=== PATIENT | male | born 1990 | race Caucasian/White ===

== ENCOUNTER 2022-11-05 12:41 | Emergency (ER) | payer OTHER, SELFPAY ==
[2022-11-05 12:58] VITALS: BP 119/78; PULSE 92; RESP 20; TEMP 37.9; O2SAT 93; BMI 25.1
--- NOTE | 2022-11-05 13:43 | ED.ALLEREA ---
HPI - Allergic Reaction General Chief complaint: Allergic Reaction Stated complaint: feels hot, stomach ache, throat tickle Time Seen by Provider: 11/05/22 13:43 Source: patient Mode of arrival: Ambulatory Limitations: no limitations History of Present Illness HPI narrative: This is a 32-year-old male with history of peanut allergy. Patient states he was eating at a restaurant he started feeling really hot he got red kind of all over he did not notice any hives but his skin is red on his face torso and extremities almost immediately afterwards he felt a little nauseated and irritated in his stomach and felt a tickle in his throat. He states it did not feel like it was closing, he did not appreciate any wheezing or tightness in his chest. No chest pain. No vomiting. No diarrhea. Patient states his typical reaction to peanuts is sort of funny smell he gets tightening and swelling in his throat he does get abdominal irritation and nausea and will sometimes get rash like hives. Patient states he did not have any ingestion of peanuts that he is aware of but was eating at a restaurant that is new to him. Patient denies any other medical issues. No prior surgeries. He states he is never required an EpiPen. He denies any other allergies. No tobacco, occasional alcohol, no illicit. 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 Related Data Allergies Allergy/AdvReac Type Severity Reaction Status Date / Time peanut Allergy Anaphylaxis Verified 11/05/22 13:07 Review of Systems Review of Systems ROS Unobtainable: All systems reviewed & are unremarkable except as noted in HPI and below Patient History Social History Smoking Status: Never smoker Smoking Status: Never smoker alcohol intake frequency: 0-2 drinks per day Substance Use Type: does not use Exam Narrative Exam Narrative: GEN: well nourished, well appearing male, alert and oriented x 3, patient appears to be in mild distress. HEENT: Atraumatic, pupils are equal round reactive to light, extraocular movements are intact, nares are clear. Throat is clear without any exudates, erythema, tonsillar enlargement or uvular deviation, no swelling of the oropharynx. No stridor, no muffled voice or hoarseness. No difficulty with secretions. HEART: Regular rate and rhythm without murmur, clicks, rubs. LUNGS:Lungs clear to auscultation, no wheezes, rales, crackles, chest moves symmetrically ABD:bowel sounds normal, soft, non-tender, no guarding, rebound, rigidity, no masses noted, no hepatosplenomegaly MSCL: Non-tender, no muscle atrophy, muscles strength 5/5 upper and lower extremities, full range of motion, normal gait NEURO:CN 2-12 intact, sensation normal SKIN: Patient has generalized erythema of the skin of his head, torso and upper extremities, he has several small meals of the left forearm that appears consistent with a hive but no blistering or other skin changes noted. Initial Vital Signs Initial Vital Signs: Vital Signs Temperature 100.2 F H 11/05/22 12:58 Pulse Rate 92 H 11/05/22 12:58 Respiratory Rate 20 11/05/22 12:58 Blood Pressure 119/78 11/05/22 12:58 Pulse Oximetry 93 11/05/22 12:58 Oxygen Delivery Method Room Air 11/05/22 12:58 Course Orders Ordered: Discontinued Medications Prednisone (Prednisone 20 Mg Tablet) 40 mg PO NOW ONE Stop: 11/05/22 13:54 Last Admin: 11/05/22 14:01 Dose: 40 mg Documented By: CTS Vital Signs Vital signs: Vital Signs - 8 hr 11/05/22 12:58 Temperature 100.2 F H Pulse Rate 92 H Respiratory Rate 20 Blood Pressure 119/78 Pulse Oximetry 93 Oxygen Delivery Method Room Air MDM - Allergic Reaction MDM Narrative Medical decision making narrative: This is a 32-year-old male with what sounds like typically a fairly mild peanut reaction he is never required EpiPen he had a possible exposure was eating at a restaurant and immediately after his meal felt tightness in his throat flushed redness of his skin and nausea. Patient took 25 mg of Benadryl he states it happened about 11 30 this morning. He states that tickle in his throat has resolved, the erythema is maybe a little bit better from his skin but still present he no longer feels nauseated. Patient has never used an EpiPen or required 1. Discussed with patient's suspect he probably did have a reaction, possibly from cross contamination from food. Plan for short course of oral steroid, prn Benadryl and return precautions. Discharge Plan Departure Patient Disposition: Home Clinical Impression: Allergic reaction Activity Restrictions/Additional Instructions: You may take Benadryl 1-2 tablets every 6 hours for any persistent symptoms. Take oral steroid until completely gone. Prescription sent to [facility] in [place]. Please return for new or worsening symptoms, blistering rash, fevers, new swelling of her lips, tongue, mouth, airway, persistent vomiting, chest pain, difficulty with breathing, new swelling of your extremities or other new or concerning changes. Referrals: Miscellaneous,Doctor, MD [Primary Care Provider] - Stand Alone Forms: Patient Portal/API
[2022-11-05] MEDS: predniSONE 20 MG TABLET 40 MG PO (14:01)
[2022-11-05 14:03] VITALS: BP 121/67; PULSE 63; RESP 17; O2SAT 96
== END 2022-11-05 14:04 | disposition home or self-care (01) ==
PROVIDERS: Emergency Provider Emergency Medicine
DX: T78.40XA Allergy, unspecified, initial encounter (principal)
CPT/HCPCS: 99283